=== PATIENT | male | born 1975 | race American Indian/Alaskan Native ===

== ENCOUNTER 2021-05-17 16:26 | Emergency (ER) | payer BC ==
[2021-05-17 16:44] VITALS: BP 148/99
[2021-05-17] MEDS ORDERED: KETOROLAC 60 MG/2 ML INJ IM ONE (17:00)
--- NOTE | 2021-05-17 17:03 | Emergency Department Report ---
ED Back Pain/Injury HPI - General Chief Complaint: Back Pain/Injury Stated Complaint: BACK MUSCLE PAIN RT SIDE Time Seen by Provider: 05/17/21 16:47 Source: patient Limitations: No Limitations - History of Present Illness Initial Comments: 45-year-old male with a past medical history of diabetes, thyroid disease and tobacco use presents to the ER today with complaints of mid to lower left thoracic back pain. Patient states that his pain started about a couple weeks ago. He described as a pulling pain which is worse with movement, and movement of his left upper extremity. He states that has been intermittent pain, and there was one time the pain did radiate to his left shoulder and left neck but this has not occurred since. Patient states that he went to [facility] urgent care last week for symptoms and was told that his symptoms was likely related to muscle strain and was prescribed Tylenol, Motrin and a muscle relaxer which starts with the letter M. He states that he has been taking the medications that have not been helping. 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 He states that he has had issues with his lumbar spine in the past, but never to his thoracic back. He states that the pain is not pleuritic. He denies any associated chest pain, shortness of breath, nausea, vomiting, abdominal pain, fever, chills, lower extremity pain or swelling. MD Complaint: back pain -: week(s) (2) - Related Data Previous Rx's Medication Instructions Recorded Last Taken Type Lidocaine [Lidoderm] 1 each TP Q12HR #10 adh..patch 05/17/21 Unknown Rx tiZANidine [Zanaflex 4mg TAB] 4 mg PO Q8H PRN #20 tablet 05/17/21 Unknown Rx Allergies Allergy/AdvReac Type Severity Reaction Status Date / Time No Known Allergies Allergy Unverified 05/17/21 16:36 ED Review of Systems ROS: Stated complaint: BACK MUSCLE PAIN RT SIDE Other details as noted in HPI Comment: All other systems reviewed and negative Constitutional: denies: chills, fever Eyes: denies: eye pain, eye discharge, vision change ENT: denies: ear pain, throat pain, dental pain, hearing loss, epistaxis, congestion Respiratory: denies: cough, orthopnea, shortness of breath, SOB with exertion, SOB at rest, wheezing Cardiovascular: denies: chest pain, palpitations, dyspnea on exertion, edema, syncope, paroxysmal nocturnal dyspnea Endocrine: no symptoms reported Gastrointestinal: denies: abdominal pain, nausea, vomiting, diarrhea, constipation, hematemesis, melena, hematochezia Genitourinary: denies: urgency, dysuria, frequency, hematuria, discharge, testicular pain, testicular mass Musculoskeletal: back pain, myalgia Skin: denies: rash, lesions, change in color, change in hair/nails, pruritus Neurological: denies: headache, weakness, numbness, paresthesias, confusion, abnormal gait, vertigo Psychiatric: denies: anxiety, depression, auditory hallucinations, visual hallucinations, homicidal thoughts, suicidal thoughts Hematological/Lymphatic: denies: easy bleeding, easy bruising, swollen glands ED Past Medical Hx - Past Medical History Hx Diabetes: Yes Additional medical history: HYPOTHROID - Surgical History Past Surgical History?: No - Medications Home Medications: Home Medications Medication Instructions Recorded Confirmed Last Taken Type Lidocaine [Lidoderm] 1 each TP Q12HR #10 adh..patch 05/17/21 Unknown Rx tiZANidine [Zanaflex 4mg TAB] 4 mg PO Q8H PRN #20 tablet 05/17/21 Unknown Rx ED Physical Exam - General Limitations: No Limitations General appearance: alert, in no apparent distress, obese - Head Head exam: Present: atraumatic, normocephalic, normal inspection - Eye Eye exam: Present: normal appearance, PERRL, EOMI Pupils: Present: normal accommodation - ENT ENT exam: Present: normal exam, mucous membranes moist - Neck Neck exam: Present: normal inspection, full ROM - Respiratory Respiratory exam: Present: normal lung sounds bilaterally. Absent: respiratory distress, wheezes, rales, rhonchi, stridor - Cardiovascular Cardiovascular Exam: Present: regular rate, normal rhythm, normal heart sounds - GI/Abdominal GI/Abdominal exam: Present: soft. Absent: distended, tenderness, guarding, rebound, rigid - Extremities Exam Extremities exam: Present: normal inspection, full ROM. Absent: tenderness, calf tenderness - Back Exam Back exam: Present: normal inspection, full ROM, muscle spasm (left mid thoracic area ), paraspinal tenderness (mild left mid thoracic area ). Absent: CVA tenderness (R), CVA tenderness (L), vertebral tenderness - Neurological Exam Neurological exam: Present: alert, oriented X3, CN II-XII intact, normal gait - Psychiatric Psychiatric exam: Present: normal affect, normal mood - Skin Skin exam: Present: intact ED Course Vital Signs 05/17/21 16:38 Temperature 97.5 F L Pulse Rate 88 Respiratory 20 Rate Blood Pressure 148/99 [Right] O2 Sat by Pulse 99 Oximetry ED Medical Decision Making - Medical Decision Making The patient presented with left mid thoracic back pain. The patient is now resting comfortably and is alert, talkative, interactive and in no distress. Exam showed that patient has muscle spasm and muscle tenderness to the left mid thoracic area. His pain is reproducible with movement. He has no vertebral point tenderness. His pain is not pleuritic. He has no chest pain or shortness of breath. The patient is neurologically intact and is ambulatory in the ED. the patient has no fever, no bowel or bladder incontinence, no saddle anesthesia and is otherwise alert and well-appearing. His history, physical examination and does not suggest the presence of acute spinal epidural abscess, acute epidural bleed, cauda equina syndrome, abdominal/thoracic aortic aneurysm, aortic dissection, PE or other acute process requiring further testing, treatment or consultation in the emergency department. Discussed suspected diagnosis and treatment plan patient. Patient will be given referral to outpatient orthospine specialist for further evaluation. The vital signs have been stable. The patient condition is stable and appropriate for discharge. The patient will pursue further outpatient evaluation with the primary care physician or other designated or consulting physician as indicated in the discharge instructions. Critical care attestation.: If time is entered above; I have spent that time in minutes in the direct care of this critically ill patient, excluding procedure time. ED Disposition Clinical Impression: Spasm of thoracic back muscle Disposition: HOME / SELF CARE / HOMELESS Is pt being admited?: No Does the pt Need Aspirin: No Condition: Stable Instructions: Muscle Cramps and Spasms, [id number], Acute Back Pain, Adult Additional Instructions: I recommend using the lidoderm patches as prescribed, continue taking the motrin that you were prescribed by the urgent care, stop the muscle relaxer that you have at home and start taking the tizinadine. Most importantly follow up with Orthospine specliast listed on your discharge instructions if your symptoms persist for another 1-2 weeks. Return to ED if worse. Prescriptions: Lidocaine [Lidoderm] 1 each TP Q12HR #10 adh..patch tiZANidine [Zanaflex 4mg TAB] 4 mg PO Q8H PRN #20 tablet PRN Reason: Muscle Spasm Referrals: [facility] [Provider Group] - 3-5 Days Forms: Work/School Release Form(ED) Time of Disposition: 17:09 Print Language: CHINESE
[2021-05-17] MEDS ORDERED: LIDOCAINE 5% 1 EACH PATCH TD STA (17:07)
== END 2021-05-17 17:46 | disposition home or self-care (01) ==
LOC: ED 16:26
DX: M62.830 Muscle spasm of back (principal); E11.9 Type 2 diabetes mellitus without complications; E03.9 Hypothyroidism, unspecified
CPT/HCPCS: 96372; 99282; J1885